=== PATIENT | male | born 1945 | race Caucasian/White ===

== ENCOUNTER 2022-03-25 08:08 | Outpatient (CLI) | payer MEDICARE, SELFPAY ==
--- NOTE | ~2022-03-25 | XR_ITS ---
EXAMINATION: XR abdomen/kub 1V INDICATION: Calcium kidney stone TECHNIQUE: Supine views of the abdomen were obtained on 2 radiographs. COMPARISON: None FINDINGS: There are least three left kidney stones which measure 2 mm in the mid and lower kidney. A right upper quadrant calcification measuring 10 mm appears to relate to the gallbladder. There are no dilated loops of bowel. The visualized lung bases are clear. No stones are identified along the expe cted courses of the ureters or in the urinary bladder. IMPRESSION: 1. Left nephrolithiasis. Reviewed, dictated and finalized at location B. [facility] SPECIALIST IMPRESSION: 1. Left nephrolithiasis.
== END 2022-03-25 08:09 | disposition home or self-care (01) ==
PROVIDERS: Visit Provider Urology
DX: N20.0 Calculus of kidney (principal)
CPT/HCPCS: 74018